=== PATIENT | male | born 1965 | race Asian ===

== ENCOUNTER 2020-08-06 13:06 | Emergency (ER) | payer OTHER ==
[~2020-08-06] VITALS: Ht 182.9 cm; Wt 108.4 kg
[2020-08-06 13:24] VITALS: BP 189/95; TEMP 98.3
[2020-08-06 13:53] LABS: PLATELET COUNT 93 K/uL (142-355)
[2020-08-06 14:05] LABS: POTASSIUM 4.3 mmol/L (3.6-5.2)
[2020-08-06] MEDS ORDERED: FLUTMIS6 INH (16:02)
[2020-08-06] MEDS ORDERED: ALLO100T22 PO (16:03)
[2020-08-06] MEDS ORDERED: BUSPIRONE10 MG PO (16:03)
[2020-08-06] MEDS ORDERED: BYDUREON2 MG SC (16:06)
[2020-08-06] MEDS ORDERED: DIVA125C PO (16:07)
[2020-08-06] MEDS ORDERED: DONEPEZIL HYDRO10 MG PO (16:12)
[2020-08-06] MEDS ORDERED: ACID CONTROL10 MG PO (16:13)
[2020-08-06] MEDS ORDERED: EQL IRON SUPPL325 MG PO (16:14)
[2020-08-06] MEDS ORDERED: GLUCAGON EMER1 MG/ML IM (16:16)
[2020-08-06] MEDS ORDERED: HALOBETASOL EX (16:17)
[2020-08-06] MEDS ORDERED: HUMULIN R100 UNIT/M IM (16:21)
[2020-08-06] MEDS ORDERED: INSUINJP SC (16:23)
[2020-08-06] MEDS ORDERED: NAMENDA5 MG PO (16:24)
[2020-08-06] MEDS ORDERED: MAG OXIDE400 MG PO (16:24)
[2020-08-06] MEDS ORDERED: OXCARBAZEPIN600 MG PO (16:30)
[2020-08-06] MEDS ORDERED: PROVENTIL108 MCG/AC INH (16:33)
[2020-08-06] MEDS ORDERED: SERT100T PO (16:33)
[2020-08-06] MEDS ORDERED: TRIA0.1C19 TOP (16:35)
[2020-08-06] MEDS ORDERED: ZIPR80CA PO (16:36)
== END 2020-08-06 15:24 | disposition other institution (70) ==
LOC: ED 13:06
PROVIDERS: Family Medicine
DX: R46.89 Other symptoms and signs involving appearance and behavior (principal); E11.65 Type 2 diabetes mellitus with hyperglycemia; Z11.52 Encounter for screening for COVID-19; Z04.6 Encounter for general psychiatric examination, requested by authority
CPT/HCPCS: 80053; 85027; 87635; 96372; 99283; 99285; J1815; U0003

== ENCOUNTER 2021-12-31 21:06 | Emergency (ER) | payer OTHER ==
[~2021-12-31] VITALS: Ht 182.9 cm; Wt 109.8 kg
[~2021-12-31 21:06] MED LIST: ACET-206 PO; ACID CONTROL10 MG PO; ALBU90AE13 INH; ALLO100T22 PO; BUDE1AER5 INH; BUSP5TAB2 PO; BUSPIRONE10 MG PO; BYDUREON2 MG SC; CHOL100034 PO; DIVA125C PO; DIVALPROEX500 MG PO; DONE5TAB PO; DONEPEZIL HYDRO10 MG PO; DOXYCYCL HYC100 MG PO; EQL IRON SUPPL325 MG PO; FAMOTIDINE20 MG PO; FERROUS SULF325 MG PO; FLUTMIS6 INH; FURO20TA67 PO; GLUCAGON EMER1 MG/ML IM; HALOBETASOL EX; HUMULIN R100 UNIT/M IM; HYDR5TAB9 PO; INSU100P SC; INSU300I SC; INSUINJP SC; MAG OXIDE400 MG PO; MAGN400T4 PO; MAGNSUS68 PO; MEMA5TAB PO; MUPI2OIN2 TOP; NAMENDA5 MG PO; OXCARBAZEPIN300 MG PO; OXCARBAZEPIN600 MG PO; PROVENTIL108 MCG/AC INH; SERT100T PO; SERT50TA PO; TRIA0.1C19 TOP; ZIPR80CA PO
[2021-12-31 21:47] LABS: PLATELET COUNT 72 K/uL (142-355)
[2021-12-31 21:52] LABS: POTASSIUM 4.2 mmol/L (3.6-5.2)
[2021-12-31 22:20] VITALS: BP 160/87; TEMP 97.9
[2022-01-01] MEDS ORDERED: BUSPIRONE15 MG PO (08:43)
[2022-01-01] MEDS ORDERED: DONEPEZIL HYDRO10 MG PO (08:44)
[2022-01-01] MEDS ORDERED: ERGOCALCIF50000 UNIT PO (08:45)
[2022-01-01] MEDS ORDERED: FAMO20TA4 PO (08:46)
[2022-01-01] MEDS ORDERED: TAMSULOSIN0.4 MG PO (08:47)
[2022-01-01] MEDS ORDERED: LEVEMIR FL100 UNIT/M SC (08:48)
[2022-01-01] MEDS ORDERED: NOVOLOG FL100 UNIT/M SC ×2 (08:53→08:54)
[2022-01-01] MEDS ORDERED: ALBUTEROL108 MCG/AC INH (08:57)
[2022-01-01] MEDS ORDERED: SERTRALINE HYD100 MG PO (09:00)
[2022-01-01] MEDS ORDERED: TRAMADOL HYDROC50 MG PO (09:01)
[2022-01-01] MEDS ORDERED: TYLENOL325 MG PO (09:04)
[2022-01-01] MEDS ORDERED: ASCORBIC ACD500 MG PO (09:06)
[2022-01-01] MEDS ORDERED: VITAMIN D2000 UNI2 PO (09:07)
[2022-01-01] MEDS ORDERED: ZIPRASIDONE HYD40 MG PO (09:08)
[2022-01-01] MEDS ORDERED: ONDA4TAB3 PO (09:10)
[2022-01-06] MEDS ORDERED: ACET-206 PO (11:10)
[2022-01-06] MEDS ORDERED: BUSP15TAB2 PO (11:11)
[2022-01-06] MEDS ORDERED: ALBU90AE13 INH ×2 (11:11→11:43)
[2022-01-06] MEDS ORDERED: ALLO100T22 PO ×2 (11:11→11:43)
[2022-01-06] MEDS ORDERED: ASCO500T18 PO (11:11)
[2022-01-06] MEDS ORDERED: DONE5TAB PO (11:12)
[2022-01-06] MEDS ORDERED: FERROUS SULF325 MG PO ×2 (11:12→11:43)
[2022-01-06] MEDS ORDERED: FAMOTIDINE20 MG PO ×2 (11:12→11:43)
[2022-01-06] MEDS ORDERED: INSU100P SC ×2 (11:13)
[2022-01-06] MEDS ORDERED: INSU300I SC ×2 (11:14→11:43)
[2022-01-06] MEDS ORDERED: LORA1TAB17 PO (11:14)
[2022-01-06] MEDS ORDERED: MEMA5TAB PO ×2 (11:14→11:43)
[2022-01-06] MEDS ORDERED: ZIPR20CA PO (11:15)
[2022-01-06] MEDS ORDERED: SERT50TA PO (11:15)
[2022-01-06] MEDS ORDERED: BUDE1AER5 INH (11:43)
[2022-01-06] MEDS ORDERED: DIVALPROEX500 MG PO (11:43)
[2022-01-06] MEDS ORDERED: TYLENOL325 MG PO (11:43)
[2022-01-06] MEDS ORDERED: FURO20TA67 PO (11:43)
[2022-01-06] MEDS ORDERED: ONDA4TAB3 PO (11:43)
[2022-01-06] MEDS ORDERED: MAGN400T4 PO (11:43)
[2022-01-06] MEDS ORDERED: CHOL100034 PO (11:43)
[2022-01-06] MEDS ORDERED: BUSPIRONE15 MG PO (11:43)
[2022-01-06] MEDS ORDERED: LEVEMIR FL100 UNIT/M SC (11:43)
[2022-01-06] MEDS ORDERED: TAMSULOSIN0.4 MG PO (11:43)
[2022-01-06] MEDS ORDERED: TRAMADOL HYDROC50 MG PO (11:43)
[2022-01-06] MEDS ORDERED: DOXYCYCL HYC100 MG PO (11:43)
[2022-01-06] MEDS ORDERED: FAMO20TA4 PO (11:43)
[2022-01-06] MEDS ORDERED: ERGOCALCIF50000 UNIT PO (11:43)
[2022-01-06] MEDS ORDERED: SERTRALINE HYD100 MG PO (11:43)
[2022-01-06] MEDS ORDERED: OLANZAPINE5 MG PO (11:43)
[2022-01-06] MEDS ORDERED: ASCORBIC ACD500 MG PO (11:43)
[2022-01-06] MEDS ORDERED: ALBUTEROL108 MCG/AC INH (11:43)
[2022-01-06] MEDS ORDERED: DONEPEZIL HYDRO10 MG PO (11:43)
[2022-01-06] MEDS ORDERED: NOVOLOG FL100 UNIT/M SC ×2 (11:43)
[2022-01-06] MEDS ORDERED: BYDUREON B2 MG/0.85 SC (11:43)
[2022-01-06] MEDS ORDERED: VITAMIN D2000 UNI2 PO (11:43)
[2022-01-06] MEDS ORDERED: MAGNSUS68 PO (11:43)
[2022-01-06] MEDS ORDERED: GLUCAGON EMER1 MG/ML IM (11:43)
== END 2021-12-31 22:25 | disposition still patient (30) ==
LOC: ED 21:06
PROVIDERS: Emergency Medicine Emergency Medical Services
DX: F03.91 Unspecified dementia, unspecified severity, with behavioral disturbance (principal); Z11.52 Encounter for screening for COVID-19; Z04.6 Encounter for general psychiatric examination, requested by authority
CPT/HCPCS: 80053; 85027; 87635; 93005; 99283; U0003

== ENCOUNTER 2022-01-12 21:55 | Emergency (ER) | payer OTHER ==
[~2022-01-12] VITALS: Ht 182.9 cm; Wt 85.3 kg
[~2022-01-12 21:55] MED LIST changes: +ALBUTEROL108 MCG/AC INH; +ASCO500T18 PO; +ASCORBIC ACD500 MG PO; +BUSP15TAB2 PO; +BUSPIRONE15 MG PO; +BYDUREON B2 MG/0.85 SC; +ERGOCALCIF50000 UNIT PO; +FAMO20TA4 PO; +LEVEMIR FL100 UNIT/M SC; +LORA1TAB17 PO; +NOVOLOG FL100 UNIT/M SC; +OLANZAPINE5 MG PO; +ONDA4TAB3 PO; +SERTRALINE HYD100 MG PO; +TAMSULOSIN0.4 MG PO; +TRAMADOL HYDROC50 MG PO; +TYLENOL325 MG PO; +VITAMIN D2000 UNI2 PO; +ZIPR20CA PO; +ZIPRASIDONE HYD40 MG PO
[2022-01-12 22:47] LABS: PLATELET COUNT 60 K/uL (142-355)
[2022-01-12 23:00] LABS: POTASSIUM 4.3 mmol/L (3.6-5.2)
[2022-01-13 00:15] VITALS: BP 138/63; TEMP 98.2
[2022-01-13] MEDS ORDERED: ALLO100T22 PO (09:08)
[2022-01-13] MEDS ORDERED: BUSP15TAB2 PO (09:09)
[2022-01-13] MEDS ORDERED: DIVALPROEX500 M1 PO (09:10)
[2022-01-13] MEDS ORDERED: DONEPEZIL HYDRO10 M1 PO (09:11)
[2022-01-13] MEDS ORDERED: VITAMIN D50000 UNIT PO (09:12)
[2022-01-13] MEDS ORDERED: FAMO20TA4 PO (09:13)
[2022-01-13] MEDS ORDERED: TAMS0.4C PO (09:14)
[2022-01-13] MEDS ORDERED: FERROUS SULF325 M1 PO (09:14)
[2022-01-13] MEDS ORDERED: FURO20TA67 PO (09:16)
[2022-01-13] MEDS ORDERED: GLUCAGON EMERGEN1 MG INJ (09:16)
[2022-01-13] MEDS ORDERED: INSU300I SC (09:17)
[2022-01-13] MEDS ORDERED: COZAAR25 MG PO (09:18)
[2022-01-13] MEDS ORDERED: LORA1TAB17 PO (09:18)
[2022-01-13] MEDS ORDERED: MILK OF MA400 MG/5 M PO (09:20)
[2022-01-13] MEDS ORDERED: MAGNESIUM-OXID400 MG PO (09:21)
[2022-01-13] MEDS ORDERED: MEMA10TA2 PO (09:22)
[2022-01-13] MEDS ORDERED: INSU100P SC ×2 (09:22→09:25)
[2022-01-13] MEDS ORDERED: PROVENTIL108 MCG/AC INH (09:26)
[2022-01-13] MEDS ORDERED: TRAMADOL HYDROC50 MG PO (09:27)
[2022-01-13] MEDS ORDERED: SERT100T PO (09:27)
[2022-01-13] MEDS ORDERED: TYLENOL325 MG PO (09:28)
[2022-01-13] MEDS ORDERED: VITAMIN C 500 M1 TAB PO (09:29)
[2022-01-13] MEDS ORDERED: D350 MC1 PO (09:30)
[2022-01-13] MEDS ORDERED: FLUTICASONE PRO1 AE1 INH (09:31)
[2022-01-13] MEDS ORDERED: ZIPRASIDONE HYD40 MG PO (09:32)
[2022-01-13] MEDS ORDERED: ONDA4TAB3 PO (09:33)
== END 2022-01-13 00:15 | disposition still patient (30) ==
LOC: ED 21:55
PROVIDERS: Emergency Medicine Emergency Medical Services
DX: R46.89 Other symptoms and signs involving appearance and behavior (principal); Z11.52 Encounter for screening for COVID-19; Z04.6 Encounter for general psychiatric examination, requested by authority
CPT/HCPCS: 36415; 80053; 85027; 87635; 93005; 99283; U0003

== ENCOUNTER 2022-04-15 18:11 | Emergency (ER) | payer OTHER ==
[~2022-04-15] VITALS: Ht 170.2 cm; Wt 91.2 kg
[~2022-04-15 18:11] MED LIST changes: +BACTRIM PO; +COZAAR25 MG PO; +DIVA500T2 PO; +DIVALPROEX500 M1 PO; +DONEPEZIL HYDRO10 M1 PO; +FERROUS SULF325 M1 PO; +FLUTICASONE PRO1 AE1 INH; +Flonase Nasal Inhale NAS; +GLUCAGON EMERGEN1 MG INJ; +LOSA50TA PO; +MAGNESIUM-OXID400 MG PO; +MEMA10TA2 PO; +MILK OF MA400 MG/5 M PO; +OLANZAPINE10 MG PO; +TAMS0.4C PO; +ULTRAM 50MG TAB PO; +VITAMIN C 500 M1 TAB PO; +VITAMIN D325 MCG PO; +VITAMIN D50000 UNIT PO
[2022-04-15 18:12] VITALS: BP 190/96; TEMP 98.3
[2022-04-15 18:44] LABS: PLATELET COUNT 53 K/uL (142-355)
[2022-04-15 18:48] LABS: POTASSIUM 5.6 mmol/L (3.6-5.2)
[2022-04-16] MEDS ORDERED: BUSPIRONE15 MG PO (09:28)
[2022-04-16] MEDS ORDERED: ZIPR80CA PO (09:39)
[2022-04-16] MEDS ORDERED: FERROUS SULF325 M1 PO (09:42)
== END 2022-04-15 20:05 | disposition still patient (30) ==
LOC: ED 18:11
PROVIDERS: Family Medicine
DX: R41.0 Disorientation, unspecified (principal); F22 Delusional disorders; Z11.52 Encounter for screening for COVID-19; Z04.6 Encounter for general psychiatric examination, requested by authority
CPT/HCPCS: 36415; 80053; 81002; 85027; 87635; 93005; 99283; J1815; U0003

== ENCOUNTER 2022-06-25 21:07 | Emergency (ER) | payer OTHER ==
[~2022-06-25] VITALS: Ht 188 cm; Wt 95.7 kg
[~2022-06-25 21:07] MED LIST changes: +OLAN2.5T2 PO
[2022-06-25 21:37] LABS: PLATELET COUNT 57 K/uL (142-355)
[2022-06-25 22:06] LABS: POTASSIUM 6.9 mmol/L (3.6-5.2)
[2022-06-26 01:35] VITALS: BP 155/73; TEMP 98.5
[2022-06-26 01:38] LABS: POTASSIUM 5.5 mmol/L (3.6-5.2)
== END 2022-06-26 01:35 | disposition short-term general hospital (02) ==
LOC: ED 21:07
PROVIDERS: Emergency Medicine
DX: N17.9 Acute kidney failure, unspecified (principal); N18.4 Chronic kidney disease, stage 4 (severe); E87.5 Hyperkalemia; E11.65 Type 2 diabetes mellitus with hyperglycemia; Z79.4 Long term (current) use of insulin; Z11.52 Encounter for screening for COVID-19
CPT/HCPCS: 36415; 36600; 80048; 80053; 81000; 82805; 85027; 87635; 93005; 96361; 96374; 96375; 99285; J0610; J1815; U0003